=== PATIENT | male | born 1990 | race Caucasian/White ===

== ENCOUNTER 2016-09-14 14:39 | Emergency (ER) | payer OTHER ==
[~2016-09-14] VITALS: Ht 172.7 cm; Wt 70.5 kg
[2016-09-14 14:47] VITALS: Ht 172.7 cm; Wt 70.5 kg
[2016-09-14] MEDS ORDERED: ALBUTEROL 0.083% (NEB) 2.5 MG/3 ML AMP HHN STA (15:29)
[2016-09-14] MEDS ORDERED: predniSONE 20 MG TAB PO ONE (15:30)
[2016-09-14] MEDS ORDERED: PRED20TA PO (16:44)
[2016-09-14] MEDS ORDERED: ALBU18HF INHALATION (16:44)
[2016-09-14] MEDS ORDERED: AZIT250T94 PO (16:44)
--- NOTE | 2016-09-14 16:47 | ERD ---
ER Documentation Chief Complaint Date/Time DATE: 09/14/16 TIME: 16:46 Chief Complaint SOB WITH ACTIVITY [id number] HPI This 25-year-old male presents with cough and wheezing for last week. He complains of productive sputum. Denies fevers, sustained chest pain, vomiting, abdominal pain, additional complaints. Patient denies any history of asthma ROS All systems reviewed and are negative except as per history of present illness. Medications Home Meds Active Scripts Albuterol Sulfate* (Ventolin HFA*) 18 Gm Hfa.aer.ad, 2 PUFF INHALATION Q4H, #1 INHALER Prov:SARITA POLLOCK MD 09/14/16 Prednisone* (Prednisone*) 20 Mg Tab, 40 MG PO DAILY for 4 Days, TAB Start September 15, 2016 Prov:SARITA POLLOCK MD 09/14/16 Azithromycin* (Zithromax*) 250 Mg Tablet, 250 MG PO .ZPACK DIRECTED, #6 TAB TAKE 500 MG (2 TABS) THE FIRST DAY THEN 250 MG (1 TAB) DAYS 2-5 Prov:SARITA POLLOCK MD 09/14/16 Allergies Allergies: Coded Allergies: No Known Allergy (Unverified , 09/14/16) PMhx/Soc Medical and Surgical Hx: pt denies Medical Hx, pt denies Surgical Hx Hx Alcohol Use: Yes Hx Substance Use: No Hx Tobacco Use: No Smoking Status: Never smoker Physical Exam Vitals Vital Signs Date Time Temp Pulse Resp B/P Pulse Ox O2 Delivery O2 Flow Rate FiO2 09/14/16 15:47 85 19 94 21 09/14/16 14:47 98.1 72 22 118/60 93 Physical Exam Const: [], [id number] per Head: Atraumatic Eyes: Normal Conjunctiva ENT: Normal External Ears, Nose and Mouth. Neck: Full range of motion..~ No meningismus. Resp: Clear to auscultation bilaterally. Diffuse coarse breath sounds with rhonchi and mild wheeze. No rales or retractions appreciated. Cardio: Regular rate and rhythm, no murmurs Abd: Soft, non tender, non distended. Normal bowel sounds Skin: No petechiae or rashes Back: No midline or flank tenderness Ext: No cyanosis, or edema Neur: Awake and alert Psych: Normal Mood and Affect Results 24 hrs Current Medications Medications (Trade) Dose Ordered Sig/Blas Route PRN Reason Start Time Stop Time Status Last Admin Dose Admin Prednisone (Prednisone) 60 mg ONCE ONCE PO 09/14/16 15:30 09/14/16 15:31 DC 09/14/16 15:41 Albuterol (Proventil 0.083% (Neb)) 5 mg ONCE STAT HHN 09/14/16 15:29 09/14/16 15:31 DC 09/14/16 15:44 Procedures/MDM Patient was given albuterol treatment 1 and prednisone 60 mg by mouth. Chest X-ray 1V Interpreted by me: Soft Tissue: No acute abnormalities Bones: No acute abnormalities Mediastinum/Cardiac Silhouette/Lungs: [No acute abnormalities]. Impression have normal 1 view chest x-ray Patient showed improvement of breath sounds after observation treatment. Patient presents with productive cough and wheezing for the last 5 days. He has no evidence of hypoxemia or respiratory distress. Likely has bronchitis with wheezing will be treated with Zithromax, short course prednisone and eventually further observation. The patient was stable with no new complaints during the ER course. Clinically, there is no current evidence to suggest meningitis, sepsis, acute abdomen, pneumonia, acute coronary syndrome, pulmonary embolism, or any other emergent condition appearing to require further evaluation or hospitalization. The patient should certainly return for any new or worsening symptoms per the aftercare instructions. They should otherwise follow-up with her primary care doctor for reevaluation this week. Departure Diagnosis: Primary Impression: Wheeze Additional Impression: URI, acute Condition: Stable Patient Instructions: Bronchitis With Wheezing (Adult) Additional Instructions: X-ray appears normal. Recheck for new or worsening symptoms or primary care doctor. SARITA POLLOCK MD Sep 14, 2016 16:47
[2016-09-14 16:52] VITALS: BP 131/67; PULSE 68; RESP 18
--- NOTE | 2016-09-14 17:07 | RADRPT ---
PROCEDURE: XR Chest. CLINICAL INDICATION: Shortness of breath TECHNIQUE: PA view of the chest was obtained. COMPARISON: None. FINDINGS: The cardiomediastinal silhouette is within normal limits. The lungs are clear. No pleural effusion or pneumothorax is identified. The visualized osseous structures are intact. IMPRESSION: No evidence of active cardiopulmonary disease. RPTAT: VV .Mansoor Spring MD, Date Time Electronically viewed and signed by .Mansoor Spring MD, on 09/14/2016 17:07 .O/
== END 2016-09-14 16:53 | disposition home or self-care (01) ==
LOC: FTE 14:39
DX: R06.2 Wheezing (principal); J06.9 Acute upper respiratory infection, unspecified
CPT/HCPCS: 71010; 94664; J7512; Z7502; Z7610

== ENCOUNTER 2016-09-18 05:08 | Emergency (ER) | payer OTHER ==
[~2016-09-18] VITALS: Ht 172.7 cm; Wt 72.0 kg
[~2016-09-18 05:08] MED LIST: ALBU18HF INHALATION; AZIT250T94 PO; PRED20TA PO
[2016-09-18 05:11] VITALS: Ht 172.7 cm; Wt 72.0 kg
[2016-09-18] MEDS ORDERED: predniSONE 20 MG TAB PO STA (06:15)
[2016-09-18] MEDS ORDERED: IPRATROPIUM (NEB) 0.5 MG/2.5 ML AMP NEB STA (06:15)
[2016-09-18] MEDS ORDERED: LEVALBUTEROL (NEB) 1.25 MG/0.5 ML AMP INH STA (06:15)
[2016-09-18] MEDS ORDERED: AZIT250T94 PO (08:21)
[2016-09-18] MEDS ORDERED: PRED20TA PO (08:21)
[2016-09-18] MEDS ORDERED: ALBU8.5H3 INH (08:22)
--- NOTE | 2016-09-18 08:27 | ERD ---
ER Documentation Chief Complaint Date/Time DATE: 09/18/16 TIME: 08:22 Chief Complaint cough x 2 weeks HPI Patient is a 25-year-old male with a past medical history of asthma who presents to the ED with a cough and wheezing 2 weeks. Patient was seen here in 09-14-16 and at that time diagnosed with bronchitis. Patient was sent home with numerous prescriptions including albuterol inhaler, prednisone and azithromycin. Patient states he has not filled any of these prescriptions. Patient returned to the ED today with continued wheezing and shortness of breath. Patient states that he continues to have a productive cough. Patient denies any fevers or chills. Patient denies any chest pain, left upper extremity pain, diaphoresis or loss of consciousness. Patient denies history of intubation or needing to be admitted due to asthma exacerbation. ROS All systems reviewed and are negative except as per history of present illness. Medications Home Meds Active Scripts Albuterol Sulfate* (Proair HFA*) 8.5 Gm Hfa.aer.ad, 2 PUFF INH Q4, #1 INHALER Prov:MORRO LILLY PA-C 09/18/16 Prednisone* (Prednisone*) 20 Mg Tab, 40 MG PO DAILY for 4 Days, TAB Prov:MORRO LILLY PA-C 09/18/16 Azithromycin* (Zithromax*) 250 Mg Tablet, 250 MG PO .ZPACK DIRECTED, #6 TAB TAKE 500 MG (2 TABS) THE FIRST DAY THEN 250 MG (1 TAB) DAYS 2-5 Prov:MORRO LILLY PA-C 09/18/16 Albuterol Sulfate* (Ventolin HFA*) 18 Gm Hfa.aer.ad, 2 PUFF INHALATION Q4H, #1 INHALER Prov:SARITA POLLOCK MD 09/14/16 Prednisone* (Prednisone*) 20 Mg Tab, 40 MG PO DAILY for 4 Days, TAB Start September 15, 2016 Prov:SARITA POLLOCK MD 09/14/16 Azithromycin* (Zithromax*) 250 Mg Tablet, 250 MG PO .ZPACK DIRECTED, #6 TAB TAKE 500 MG (2 TABS) THE FIRST DAY THEN 250 MG (1 TAB) DAYS 2-5 Prov:SARITA POLLOCK MD 09/14/16 Discontinued Scripts Prednisone* (Prednisone*) 20 Mg Tab, 60 MG PO DAILY for 4 Days, TAB Prov:VIJAYAMORRO NAYAK 09/18/16 Allergies Allergies: Coded Allergies: No Known Allergy (Unverified , 09/14/16) PMhx/Soc History of Surgery: No Anesthesia Reaction: No Hx Neurological Disorder: No Hx Respiratory Disorders: Yes (asthma) Hx Cardiac Disorders: No Hx Psychiatric Problems: No Hx Miscellaneous Medical Probl: No Hx Alcohol Use: Yes Hx Substance Use: No Hx Tobacco Use: No Smoking Status: Never smoker FmHx Family History: No diabetes Physical Exam Vitals Vital Signs Date Time Temp Pulse Resp B/P Pulse Ox O2 Delivery O2 Flow Rate FiO2 09/18/16 09:22 98.3 82 20 112/56 94 Nasal Cannula 09/18/16 06:25 102 26 97 Nasal Cannula 4.0 09/18/16 06:25 4.0 09/18/16 05:11 97.6 103 20 127/71 96 Physical Exam GENERAL: Well-developed, well-nourished male. Abdominal retractions noted, nasal flaring noted. HEAD: Normocephalic, atraumatic. EYES: Pupils are equally reactive bilaterally. EOMs grossly intact. No conjunctival erythema. ENT: Moist mucous membranes. No uvula deviation. No kissing tonsils. NECK: Supple. No meningismus. Normal range of motion of the neck. LUNG: Wheezing noted in bilateral lobes. HEART: Regular rate and rhythm. No murmurs, rubs or gallops. ABDOMEN: No scars, ecchymosis or rashes noted. Soft, nontender, and nondistended. Positive bowel sounds in all four quadrants. No rebound tenderness , no guarding. (-) McBurney's point tenderness. No CVA tenderness. BACK: No midline tenderness. EXTREMITIES: Equal pulses bilaterally. No peripheral clubbing, cyanosis or edema. No unilateral leg swelling. NEUROLOGIC: Alert and oriented. Moving all four extremities without any difficulty. Normal speech. Steady gait. SKIN: Normal color. Warm and dry. No rashes or lesions. Results 24 hrs Current Medications Medications (Trade) Dose Ordered Sig/Blas Route PRN Reason Start Time Stop Time Status Last Admin Dose Admin Ipratropium Dorothy (Atrovent 0.02% (Neb)) 0.5 mg ONCE STAT NEB 09/18/16 06:15 09/18/16 06:17 DC 09/18/16 06:24 Levalbuterol (Xopenex Neb) 5 mg ONCE STAT INH 09/18/16 06:15 09/18/16 06:17 DC 09/18/16 06:24 Prednisone (Prednisone) 60 mg ONCE STAT PO 09/18/16 06:15 09/18/16 06:17 DC 09/18/16 06:27 Procedures/MDM ED COURSE: The patient was stable throughout ED course. I kept the patient and/or family informed of laboratory and diagnostic imaging results throughout the ED course. DIAGNOSTIC IMAGING: Read by radiologist. DIAGNOSTIC IMAGING REPORT Patient: KAMERON ESPINOZA : 1990 Age: 25 Sex: M MR #: [id number] DOS: 09/18/16614 Ordering MD: MORRO LILLY PA-C Location: [facility] Room/Bed: PROCEDURE: XR Chest. CLINICAL INDICATION: chest pain, asthma TECHNIQUE: Single frontal view of the chest was obtained COMPARISON: 09/14/2016 FINDINGS: The heart and mediastinum are within normal limits. The lungs are clear. There is no pleural effusion or pneumothorax. RPTAT: AA IMPRESSION: No acute disease. .Miguel Ramirez MD, MD Date Time Electronically viewed and signed by .Miguel Ramirez MD, MD on 09/18/2016 08: 39 .S/ CC: MORRO LILLY PA-C MEDICATIONS GIVEN: Xopenex 1 hour breathing treatment, ipratropium, prednisone Patient tolerated medication well with no adverse reactions. MEDICAL DECISION MAKING: This is a 25-year-old male who presents to the ED with wheezing, shortness of breath and a cough 2 weeks. Patient was seen here earlier in the week however he did not fill any of his prescriptions. Vital signs were reviewed. Patient was afebrile. Patient was not hypoxic at initial presentation. His O2 sat was noted to be 96%. Patient did display some abdominal retractions. Lung exam revealed wheezing. Patient was given a breathing treatment as well as prednisone here in the ED. Chest x-ray was unremarkable. Upon reexamination, patient no longer displayed signs of abdominal retractions or nasal flaring. Patient's breath sounds were improved. Patient stated that he felt better. Given these findings, the patient's presentation is most consistent with asthma exacerbation secondary to acute bronchitis.. I have a much lower clinical concern for pneumothorax, pleural effusion, pneumonia, meningitis, sinusitis, otitis externa, acute otitis media, strep pharyngitis, epiglottitis or peritonsillar abscess. PRESCRIPTIONS: Azithromycin, albuterol, prednisone DISCHARGE: At this time, patient is stable for discharge and outpatient management. Patient was encouraged to the pharmacy immediately upon discharge to fill his prescriptions. Patient was given a copy of chest x-ray. Supportive therapies such as OTC throat lozenges, salt water gurgles, popsicles and jello discussed. I have instructed the patient to follow-up with his/her primary care physician in 1-2 days. I have instructed the patient to promptly return to the ER for any new or worsening symptoms including increased pain, swelling, fever, nausea, vomiting, weakness or difficulty breathing. The patient and/or family expressed understanding of and agreement with this plan. All questions were answered. Home care instructions were provided. Departure Diagnosis: Primary Impression: Asthma exacerbation Additional Impression: Acute bronchitis Bronchitis organism: unspecified organism Qualified Code: J20.9 - Acute bronchitis, unspecified organism Condition: Stable Patient Instructions: Asthma Medications Referrals: [facility] YOU HAVE RECEIVED A MEDICAL SCREENING EXAM AND THE RESULTS INDICATE THAT YOU DO NOT HAVE A CONDITION THAT REQUIRES URGENT TREATMENT IN THE EMERGENCY DEPARTMENT. FURTHER EVALUATION AND TREATMENT OF YOUR CONDITION CAN WAIT UNTIL YOU ARE SEEN IN YOUR DOCTORS OFFICE WITHIN THE NEXT 1-2 DAYS. IT IS YOUR RESPONSIBILITY TO MAKE AN APPOINTMENT FOR [facility]. IF YOU HAVE A PRIMARY DOCTOR --you should call your primary doctor and schedule an appointment IF YOU DO NOT HAVE A PRIMARY DOCTOR YOU CAN CALL OUR PHYSICIAN REFERRAL HOTLINE AT IF YOU CAN NOT AFFORD TO SEE A PHYSICIAN YOU CAN CHOSE FROM THE FOLLOWING [facility] [address] [facility]. [facility] [address] [facility]. [facility] [address] [facility]. [facility] [address] [facility]. [facility] [address] [facility]. [facility]. [address] [facility]. [facility] YOU HAVE RECEIVED A MEDICAL SCREENING EXAM AND THE RESULTS INDICATE THAT YOU DO NOT HAVE A CONDITION THAT REQUIRES URGENT TREATMENT IN THE EMERGENCY DEPARTMENT. FURTHER EVALUATION AND TREATMENT OF YOUR CONDITION CAN WAIT UNTIL YOU ARE SEEN IN YOUR DOCTORS OFFICE WITHIN THE NEXT 1-2 DAYS. IT IS YOUR RESPONSIBILITY TO MAKE AN APPOINTMENT FOR [facility]OLOW-UP CARE. IF YOU HAVE A PRIMARY DOCTOR --you should call your primary doctor and schedule and appointment IF YOU DO NOT HAVE A PRIMARY DOCTOR YOU CAN CALL OUR PHYSICIAN REFERRAL HOTLINE AT . IF YOU CAN NOT AFFORD TO SEE A PHYSICIAN YOU CAN CHOSE FROM THE FOLLOWING [facility], [facility]: [facility] [address] [place] [address] [facility] [address] [place] [address] [facility] + [facility] [address] [place] [address] Additional Instructions: Call your primary care doctor TOMORROW for an appointment during the next 1-2 days.See the doctor sooner or return here if your condition worsens before your appointment time. MORRO LILLY PA-C Sep 18, 2016 08:27
--- NOTE | 2016-09-18 08:39 | RADRPT ---
PROCEDURE: XR Chest. CLINICAL INDICATION: chest pain, asthma TECHNIQUE: Single frontal view of the chest was obtained COMPARISON: 09/14/2016 FINDINGS: The heart and mediastinum are within normal limits. The lungs are clear. There is no pleural effusion or pneumothorax. RPTAT: AA IMPRESSION: No acute disease. .Miguel Ramirez MD, MD Date Time Electronically viewed and signed by .Miguel Ramirez MD, on 09/18/2016 08:39 .S/
[2016-09-18 09:22] VITALS: BP 112/56; PULSE 82; RESP 20; TEMP 98.3
== END 2016-09-18 09:25 | disposition home or self-care (01) ==
LOC: FTE 05:08
DX: J45.901 Unspecified asthma with (acute) exacerbation (principal); J20.9 Acute bronchitis, unspecified
CPT/HCPCS: 71010; 94644; J7512; Z7502; Z7610

== ENCOUNTER 2017-09-11 02:17 | Emergency (ER) | END 2017-09-11 05:40 | disposition home or self-care (01) ==

== ENCOUNTER 2018-01-04 04:28 | Emergency (ER) | END 2018-01-04 06:10 | disposition home or self-care (01) ==